=== PATIENT | male | born 1955 | race Caucasian/White ===

== ENCOUNTER 2024-11-23 13:17 | Outpatient (CLI) | payer MEDICARE, BC | END 2024-11-23 13:18 | disposition home or self-care (01) | LOC: BICCT 13:17 | PROVIDERS: ATTEND Orthopaedic Surgery | DX: M17.12 Unilateral primary osteoarthritis, left knee (principal); M25.462 Effusion, left knee; M71.22 Synovial cyst of popliteal space [Baker], left knee; M16.12 Unilateral primary osteoarthritis, left hip; M24.052 Loose body in left hip; K57.30 Diverticulosis of large intestine without perforation or abscess without bleeding; N40.0 Benign prostatic hyperplasia without lower urinary tract symptoms ==

== ENCOUNTER 2024-11-29 09:01 | Outpatient (CLI) | payer MEDICARE, BC ==
[2024-11-29 11:05] LABS: #Basophils Less than 0.03 10x3/uL (0.0-0.2); %Basophils 0.3 % (0.0-1.0); %Eosinophils 1.7 % (0.0-10.0); %Lymphocytes 24.9 % (21.0-51.0); %Monocytes 8.2 % (0.0-10.0); %Neutrophils 64.5 % (42.0-75.0); Hematocrit 45.3 % (42.0-52.0); Hemoglobin 15.6 g/dL (14.0-18.0); Mean Corpuscular HGB CONC 34.4 g/dL (32.0-36.0); Mean Corpuscular Hemoglobin 31.5 pg (27.0-31.0); Mean Corpuscular Volume 91.5 fL (78.0-98.0); Mean Platelet Volume 10.1 fL (7.4-10.4); Platelet Count 192 10x3/uL (130-400); RBC Distribution Width 12.3 % (11.5-14.5); Red Blood Cell (RBC) Count 4.95 mill/uL (4.70-6.10)
[2024-11-29 11:08] LABS: Bilirubin Negative (Negative); Blood, Urine Negative (Negative); Clarity Clear (Clear); Glucose, Urine (Dipstick) Normal (Negative); Ketone, Urine Negative (Negative); Leukocyte Negative Leu/uL (Negative); Nitrite Negative (Negative); Protein, Urine (Dipstick) Negative (Neg-Trace); Specific Gravity, Urine 1.011 (1.002-1.036); Urobilinogen Normal mg/dL (Less than 2); pH, Urine 6.5 (5.0-9.0)
[2024-11-29 11:18] LABS: INR-International Normal Ratio 0.9; Prothrombin Time 12.4 sec (12.0-14.7)
[2024-11-29 11:48] LABS: Anion Gap 10 mmol/L (10-20); BUN (Urea Nitrogen) 16 mg/dL (8.4-25.7); Calc. Creatinine Clearance 0 mL/min (70-130); Calcium 9.3 mg/dL (7.8-10.44); Carbon Dioxide 27 mmol/L (23-31); Chloride 102 mmol/L (98-107); Estimated GFR 76; Glucose 91 mg/dL (80-115); Potassium 4.2 mmol/L (3.5-5.1); Sodium 135 mmol/L (136-145)
== END 2024-11-29 09:02 | disposition home or self-care (01) ==
LOC: LABBT 09:01
PROVIDERS: ATTEND Orthopaedic Surgery
DX: Z01.818 Encounter for other preprocedural examination (principal); M17.12 Unilateral primary osteoarthritis, left knee
CPT/HCPCS: 71046; 80048; 81003; 85025; 85610; 87081; 93005; 93010

== ENCOUNTER 2024-12-04 08:41 | Observation (INO) | payer MEDICARE, BC ==
[2024-11-29 09:18] VITALS: BMI 32.1
[2024-12-04] MEDS ORDERED: fentaNYL PF 100 MCG/2 ML SYRINGE ONE ×2 (08:47→10:44)
[2024-12-04] MEDS ORDERED: PROPOFOL 20 ML ONE (08:47)
[2024-12-04] MEDS ORDERED: Bupivacaine PF 0.5% 30 ML VIAL ONE (09:08)
[2024-12-04] MEDS ORDERED: Tranexamic Acid 1,000 MG/10 ML VIAL ONE (09:25)
[2024-12-04] MEDS ORDERED: Sodium Chloride 0.9% 100 ML ONE (09:26)
[2024-12-04] MEDS ORDERED: Vancomycin (BATCH) 300 ML ONE (09:26)
[2024-12-04] MEDS ORDERED: Midazolam HCl 2 mg/2 ml Vial ONE (09:39)
[2024-12-04] MEDS ORDERED: Ropivacaine 0.5% HCl/PF (150 MG/30 ML VIAL) ONE (09:39)
[2024-12-04] MEDS ORDERED: fentaNYL 50 mcg/mL 1 mL Vial ONE (09:39)
[2024-12-04] MEDS ORDERED: CEFAZOLIN 2 GM VIAL ONE (09:48)
[2024-12-04] MEDS ORDERED: fentaNYL 50 mcg/mL 1 mL Vial SLOW IVP PRN (10:15)
[2024-12-04] MEDS ORDERED: traMADol HCl 50 MG TAB PO PRN ×2 (10:15)
[2024-12-04] MEDS ORDERED: HYDROcodone/Acetaminophen 10/325 mg Tablet PO PRN (10:15)
[2024-12-04] MEDS ORDERED: Ropivacaine 0.2% 550 ML 550 ML NERVE BLCK SCH (10:15)
[2024-12-04] MEDS ORDERED: Ondansetron PF 4 MG/2 ML Vial IVP PRN ×3 (10:15→12:43)
[2024-12-04] MEDS ORDERED: Promethazine HCl 25 MG/ML VIAL IM PRN ×3 (10:15→11:55)
[2024-12-04] MEDS ORDERED: ePHEDrine Sulfate 50 MG/10 ML VIAL ONE (10:29)
[2024-12-04] MEDS ORDERED: Dexamethasone 4 mg/ml Vial ONE (10:32)
[2024-12-04] MEDS ORDERED: Ondansetron PF 4 MG/2 ML Vial ONE (10:32)
[2024-12-04] MEDS ORDERED: Ondansetron HCl/PF 4 MG/2 ML Vial IVP PRN (11:49)
[2024-12-04] MEDS ORDERED: Acetaminophen 325 MG TAB PO PRN (11:55)
[2024-12-04] MEDS ORDERED: Zolpidem Tartrate 5 MG TAB PO PRN (11:55)
[2024-12-04] MEDS ORDERED: diphenhydrAMINE 25 MG CAP PO PRN (11:55)
[2024-12-04] MEDS ORDERED: Tranexamic Acid 1,000 MG in Sodium Chloride 0.9% 100 ML IVPB SCH (12:00)
[2024-12-04] MEDS: Sodium Chloride 0.9% 1,000 ML IV SCH (13:33)
[2024-12-04] MEDS: Ketorolac Tromethamine 30 MG (1 mL) VIAL IVP SCH (14:19)
[2024-12-04] MEDS: CEFAZOLIN 2 GM in Sodium Chloride 0.9% 100 ML IVPB SCH (17:42)
[2024-12-04] MEDS ORDERED: Non-Formulary Item 1 EACH (Eszopiclone [Eszopiclone] 3 MG Tablet) PO SCH (21:00)
[2024-12-04] MEDS ORDERED: EPINASTINE EA EYE SCH (21:00)
[2024-12-04] MEDS ORDERED: Non-Formulary Item 1 EACH (Brimonidine Tartrate/Timolol [Brimonidine-Timolol 0.2%-0.5%] 5 EA EYE SCH (21:00)
[2024-12-04] MEDS: Aspirin 81 mg Enteric Coated Tablet PO SCH (21:52)
[2024-12-04] MEDS: Carvedilol 6.25 MG TAB PO SCH (21:52)
[2024-12-04] MEDS: Diazepam 2 MG TAB PO SCH (21:52)
[2024-12-04] MEDS: Ferrous Gluconate 324 MG TAB PO SCH (21:52)
[2024-12-04] MEDS: Atorvastatin Calcium 20 MG TAB PO SCH (21:52)
[2024-12-04] MEDS: Montelukast Sodium 10 mg Tablet PO SCH (21:53)
[2024-12-04] MEDS: Pregabalin 75 MG CAP PO SCH (21:53)
[2024-12-04] MEDS: Senokot S 8.6-50 MG TAB PO SCH (21:53)
[2024-12-04] MEDS: Zolpidem Tartrate 5 MG TAB PO SCH (21:53)
[2024-12-04] MEDS: Ketotifen 0.035% Ophth Soln 5 ml Bottle EA EYE SCH (21:54)
[2024-12-04] MEDS: Timolol 0.5% Ophth Soln 5 ml Bottle EA EYE SCH (22:00)
[2024-12-04] MEDS: Brimonidine Tartrate 0.2% Ophth Soln 5 ml Bottle EA EYE SCH (22:11)
[2024-12-04] MEDS: Vancomycin 1.5 GRAM/300 ML BAG 1.5 GM in Premix 1 BAG IVPB SCH (22:12)
[2024-12-05] MEDS: Ketorolac Tromethamine 30 MG (1 mL) VIAL IVP SCH (02:38)
[2024-12-05 05:18] LABS: Hematocrit 39.9 % (42.0-52.0); Mean Corpuscular HGB CONC 35.1 g/dL (32.0-36.0); Mean Corpuscular Hemoglobin 31.6 pg (27.0-31.0); Mean Corpuscular Volume 90.1 fL (78.0-98.0); Mean Platelet Volume 9.9 fL (7.4-10.4); Platelet Count 159 10x3/uL (130-400); RBC Distribution Width 12.4 % (11.5-14.5); Red Blood Cell (RBC) Count 4.43 mill/uL (4.70-6.10)
[2024-12-05] MEDS ORDERED: CARVEDILOL PHOSPHATE 20 MG PO SCH (09:00)
[2024-12-05] MEDS ORDERED: Non-Formulary Item 1 EACH (Omeprazole [Omeprazole] 20 MG Capsule.Dr) PO SCH (09:00)
[2024-12-05] MEDS ORDERED: Non-Formulary Item 1 EACH (Amlodipine Besylate/Valsartan [Amlodipine-Valsartan 10-160 Mg] PO SCH (09:00)
[2024-12-05] MEDS: Furosemide 20 MG TAB PO SCH (09:35)
[2024-12-05] MEDS: Multivitamin W/ Minerals 1 TAB PO SCH (09:35)
[2024-12-05] MEDS: Spironolactone 25 MG TAB PO SCH (09:35)
[2024-12-05] MEDS: Valsartan 80 MG TAB PO SCH (09:35)
[2024-12-05] MEDS: Amlodipine 10 MG TAB PO SCH (09:36)
[2024-12-05] MEDS: Pantoprazole 40 MG DR.TAB PO SCH (09:36)
[2024-12-05 11:09] VITALS: BP 148/84; TEMP 98
[2024-12-05] MEDS: HYDROcodone/Acetaminophen 10/325 mg Tablet PO PRN (12:00)
== END 2024-12-05 14:55 | disposition home or self-care (01) ==
LOC: SDC 08:41 → SURG A 13:34 → SDC 16:32 → SURG A 16:34
PROVIDERS: ADMIT Orthopaedic Surgery; ATTEND Orthopaedic Surgery
PROC: 0SRD0JZ Replacement of Left Knee Joint with Synthetic Substitute, Open Approach (ICD-10-PCS; principal; 2024-12-04)
PROC: 3E0T3BZ Introduction of Anesthetic Agent into Peripheral Nerves and Plexi, Percutaneous Approach (ICD-10-PCS; 2024-12-04)
DX: M17.12 Unilateral primary osteoarthritis, left knee (principal); R42 Dizziness and giddiness
CPT/HCPCS: 0055T; 27447; 64448; 36415; 85027; A4306; C1713; C1776; C1889; J0665; J1100; J1885; J2250; J2405; J2704; J2795; J3010; J3370